=== PATIENT | male | born 1975 | race Caucasian/White ===

== ENCOUNTER → 2019-02-01 | Outpatient (CLI) | payer OTHER ==
--- NOTE | 2019-02-01 17:48 | REP ---
Clinical: Mid back pain. Technique: AP, lateral, swimmers views of the thoracic spine. Findings: Mild osteopenia suggested. Vertebral bodies and disc spaces are intact and essentially normal for age. No acute fracture / compression injury or subluxation. Impression: Mild osteopenia. Electronically Signed by Bernard Nicholas MD 02/01/2019 05:40 P
--- NOTE | 2019-02-01 17:51 | REP ---
Clinical: Right-sided neck pain. Technique: AP, lateral, flexion/extension, bilateral oblique and open mouth views of the cervical spine. Findings: Alignment and lordosis maintained. No acute fracture / compression injury or subluxation. Disc spaces are within normal limits. Prevertebral soft tissues are normal. Oblique views demonstrate patent neural foramen. Open mouth view demonstrates normal C1-C2 articulation and odontoid process. Impression: Age-appropriate cervical spine radiographs. Electronically Signed by Bernard Nicholas MD 02/01/2019 05:43 P
--- NOTE | 2019-02-01 17:52 | REP ---
Clinical: Left-sided rib pain Technique: Frontal view of the chest with four views of the left hemithorax. Findings: Frontal view of the chest demonstrates no acute cardiopulmonary process. Multiple views of the left hemithorax demonstrates no obvious acute rib fracture or pathology. Impression: Normal left rib series Electronically Signed by Bernard Nicholas MD 02/01/2019 05:44 P
== END ==
LOC: M WUC 16:19
PROVIDERS: ATTEND Physician Assistant
DX: M85.88 Other specified disorders of bone density and structure, other site (principal); S16.1XXA Strain of muscle, fascia and tendon at neck level, initial encounter; S29.011A Strain of muscle and tendon of front wall of thorax, initial encounter; S29.012A Strain of muscle and tendon of back wall of thorax, initial encounter

== ENCOUNTER 2021-01-24 17:57 | Emergency (ER) | payer OTHER ==
[~2021-01-24] VITALS: Ht 180.3 cm; Wt 89.4 kg
--- NOTE | 2021-01-24 20:01 | ECGEPIP ---
[facility] - ED Test Date: 2021-01-24 Pat Name: TITUS DON Department: Room: - Gender: Male [employer] Consultant: SCOTT : [id number] Requested By: ROE LEE PA-C Order Number: [id number] Reading MD: Connor Vann Measurements Intervals [place] Rate: 90 P: 82 NV: 122 QRS: 20 QRSD: 94 T: 49 QT: 366 QTc: 447 Interpretive Statements Normal sinus rhythm NO PRIORS FOR COMPARISON Electronically Signed on 01-24-2021 20:00:39 EDT by Connor Vann
--- NOTE | 2021-01-24 20:47 | REPVR ---
PROCEDURE INFORMATION: Exam: CT Head Without Contrast Exam date and time: 01/24/2021 8:25 PM Age: 45 years old Clinical indication: Dizziness; Additional info: Dizziness, tingling bilat ue TECHNIQUE: Imaging protocol: Computed tomography of the head without contrast. Radiation optimization: All CT scans at this facility use at least one of these dose optimization techniques: automated exposure control; mA and/or kV adjustment per patient size (includes targeted exams where dose is matched to clinical indication); or iterative reconstruction. COMPARISON: CR SPINE CERVICAL COMPL 02/01/2019 4:29 PM FINDINGS: Brain: Normal. No hemorrhage. Unremarkable white matter. No mass effect. Cerebral ventricles: No ventriculomegaly. Paranasal sinuses: Visualized sinuses are unremarkable. No fluid levels. Mastoid air cells: Visualized mastoid air cells are well aerated. Bones/joints: Unremarkable. No acute fracture. Soft tissues: Unremarkable. IMPRESSION: No acute intracranial abnormality. Electronically signed by: Bradley Prasad On 01/24/2021 20:46:30 PM
[2021-01-24 20:54] LABS: BASO # 0.1 10^3/uL (0.0-0.2); BASO % 0.8 % (0.0-1.0); EOS # 0.1 10^3/uL (0.0-0.5); EOS % 0.8 % (0.0-3.0); HEMATOCRIT 42.9 % (42.0-52.0); HEMOGLOBIN 14.8 g/dl (13.5-17.5); LYMPH # 2.5 10^3/uL (1.5-5.0); LYMPH % 22.7 % (24.0-44.0); MEAN CORPUSCULAR HEMOGLOBIN 31.2 pg (27.0-33.0); MEAN CORPUSCULAR HGB CONC 34.5 g/dl (32.0-36.5); MEAN CORPUSCULAR VOLUME 90.3 fl (80.0-96.0); NEUTROPHILS # 7.2 10^3/uL (1.5-8.5); NEUTROPHILS % 66.3 % (36.0-66.0); PLATELET COUNT, AUTOMATED 201 10^3/uL (150-450); RED BLOOD COUNT 4.75 10^6/uL (4.30-6.10); WHITE BLOOD COUNT 10.9 10^3/uL (4.0-10.0)
[2021-01-24 21:31] LABS: MAGNESIUM LEVEL 2.1 MG/DL (1.8-2.4)
[2021-01-24 22:08] VITALS: BP 143/90
== END 2021-01-24 22:09 | disposition home or self-care (01) ==
LOC: M ED 17:57
DX: R42 Dizziness and giddiness (principal); M41.9 Scoliosis, unspecified; F17.200 Nicotine dependence, unspecified, uncomplicated

== ENCOUNTER → 2022-06-18 | Outpatient (REF) | payer OTHER ==
[2022-06-18 17:56] LABS: ALBUMIN 3.9 G/DL (3.2-5.2); ALKALINE PHOSPHATASE 95 U/L (46-116); ALT/SGPT 34 U/L (7.0-40); AST/SGOT 24 U/L (<34); BILIRUBIN,TOTAL 0.4 MG/DL (0.3-1.2); BLOOD UREA NITROGEN 20 MG/DL (9-23); CALCIUM LEVEL 8.8 MG/DL (8.5-10.1); CARBON DIOXIDE LEVEL 27 MMOL/L (20-31); CHLORIDE LEVEL 106 MMOL/L (98-107); CHOLESTEROL LEVEL 208 MG/DL (<200); CHOLESTEROL RISK RATIO 5.29 (<5); CREATININE FOR GFR 1.05 MG/DL (0.70-1.30); GLOMERULAR FILTRATION RATE > 60.0 (>60); GLUCOSE, FASTING 80 MG/DL (60-100); HDL CHOLESTEROL 39.3 MG/DL (>40); LDL CHOLESTEROL 141.9 MG/DL (<100); NON-HDL-C 169 MG/DL; SODIUM LEVEL 142 MMOL/L (136-145); TOTAL PROTEIN 6.8 G/DL (5.7-8.2); TRIGLYCERIDES LEVEL 134 MG/DL (<150)
== END ==
LOC: M LAB REF 17:04
PROVIDERS: ATTEND Nurse Practitioner Family
DX: R03.0 Elevated blood-pressure reading, without diagnosis of hypertension (principal)

== ENCOUNTER 2022-09-19 11:35 | Day surgery (SDC) | payer OTHER ==
[~2022-09-19] VITALS: Ht 180.3 cm; Wt 89.8 kg
[~2022-09-19 11:35] MED LIST: NS 1,000 ML IV ONE; OMEP1CAP73 PO; ZOLO100T PO
[2022-09-19 13:08] VITALS: BP 150/80
[2022-09-19] MEDS ORDERED: propofoL 200 MG/20 ML VIAL As Ordered ONE (13:15)
[2022-09-19] MEDS ORDERED: fentaNYL 100 MCG/2 ML INJECTION As Ordered ONE (13:15)
[2022-09-19] MEDS ORDERED: LIDOCAINE 2% MDV 20ML VIAL As Ordered ONE (13:15)
== END 2022-09-19 13:25 | disposition home or self-care (01) ==
LOC: M OPP 11:35
PROVIDERS: ATTEND Surgery
DX: Z12.11 Encounter for screening for malignant neoplasm of colon (principal)
CPT/HCPCS: 45378; J3010

== ENCOUNTER → 2024-01-08 | Outpatient (REF) | payer OTHER ==
[~2024-01-08] MED LIST changes: -NS 1,000 ML IV ONE
[2024-01-08 13:14] LABS: APPEARANCE, URINE CLEAR (CLEAR); BACTERIA, URINE AUTO NEGATIVE (NEGATIVE); BILIRUBIN, URINE AUTO NEGATIVE (NEGATIVE); BLOOD, URINE BLOOD NEGATIVE (NEGATIVE); COLOR, URINE YELLOW (YELLOW); GLUCOSE, URINE (UA) AUTO NEGATIVE (NEGATIVE); KETONE, URINE AUTO NEGATIVE (NEGATIVE); LEUKOCYTE ESTERASE, URINE AUTO NEGATIVE (NEGATIVE); NITRITE, URINE AUTO NEGATIVE (NEGATIVE); PROTEIN, URINE AUTO NEGATIVE (NEGATIVE); RBC, URINE AUTO 1 /HPF (0-3); SPECIFIC GRAVITY URINE AUTO 1.023 (1.002-1.035); SQUAMOUS EPITHELIAL CELL UR AU 0 /HPF (0-6); UROBILINOGEN, URINE AUTO 0.2 mg/dL (0.0-2.0); WBC, URINE AUTO 1 /HPF (0-3)
[2024-01-08 13:33] LABS: BASO # 0.1 10^3/uL (0.0-0.2); BASO % 1.1 % (0.0-1.0); EOS # 0.3 10^3/uL (0.0-0.5); EOS % 3.9 % (0.0-3.0); HEMATOCRIT 45.6 % (42.0-52.0); HEMOGLOBIN 15.2 g/dl (13.5-17.5); LYMPH # 3.2 10^3/uL (1.5-5.0); LYMPH % 38.5 % (24.0-44.0); MEAN CORPUSCULAR HEMOGLOBIN 30.8 pg (27.0-33.0); MEAN CORPUSCULAR HGB CONC 33.3 g/dl (32.0-36.5); MEAN CORPUSCULAR VOLUME 92.3 fl (80.0-96.0); MONO # 0.8 10^3/uL (0.0-0.8); MONO % 9.9 % (2.0-8.0); NEUTROPHILS # 3.8 10^3/uL (1.5-8.5); NEUTROPHILS % 46.2 % (36.0-66.0); PLATELET COUNT, AUTOMATED 201 10^3/uL (150-450); RED BLOOD COUNT 4.94 10^6/uL (4.30-6.10); WHITE BLOOD COUNT 8.2 10^3/uL (4.0-10.0)
[2024-01-08 13:43] LABS: PSA SCREENING 0.6 NG/ML (< 4.00)
[2024-01-08 13:46] LABS: BILIRUBIN,TOTAL 0.5 MG/DL (0.3-1.2); CALCIUM LEVEL 9.8 MG/DL (8.5-10.1); CHOLESTEROL RISK RATIO 6.27 (<5); CREATININE FOR GFR 1.6 MG/DL (0.70-1.30); GLOMERULAR FILTRATION RATE 49.4 (>60); HDL CHOLESTEROL 39.2 MG/DL (>40); LDL CHOLESTEROL 150.6 MG/DL (<100); NON-HDL-C 206.8 MG/DL; POTASSIUM SERUM 4.5 MMOL/L (3.5-5.1); TOTAL PROTEIN 7.3 G/DL (5.7-8.2)
[2024-01-08 13:47] LABS: THYROID STIMULATING HORMONE 2.417 uIU/ML (0.55-4.78)
[2024-01-08 13:48] LABS: HEMOGLOBIN A1c 5.4 % (4.0-6.0); TOTAL 25(OH) VITAMIN D 27.6 NG/ML (20.0-100.0)
== END ==
LOC: M LAB REF 12:30
PROVIDERS: ATTEND Nurse Practitioner Family
DX: R39.9 Unspecified symptoms and signs involving the genitourinary system (principal); E66.3 Overweight; R53.83 Other fatigue; E55.9 Vitamin D deficiency, unspecified